=== PATIENT | female | born 1995 | race Two or more races ===

== ENCOUNTER 2016-08-09 06:32 | Day surgery (SDC) | payer OTHER ==
[2016-08-02 17:38] LABS: BASOPHILS 0.2 %; BASOPHILS ABSOLUTE 0.01 10/3/uL (0.0-0.16); EOSINOPHILS ABSOLUTE 0.04 10/3/uL (0.0-0.53); HEMATOCRIT 39.7 % (36.0-48.0); HEMOGLOBIN 13.3 g/dL (12.0-16.0); LYMPHOCYTES 32.2 %; MANUAL DIFF NO %; MEAN CORPUS HGB CONC 33.5 g/dL (32.0-36.0); MEAN CORPUSCULAR HEMOGLOB 29.3 pg (26.0-34.0); MEAN CORPUSCULAR VOLUME 87.4 fL (80-100); MEAN PLATELET VOLUME 10.6 fL (9.2-13.0); MONOCYTES 10.4 %; MONOCYTES ABSOLUTE 0.42 10/3/uL (0.21-1.20); NEUTROPHILS 56.2 %; NEUTROPHILS ABSOLUTE 2.27 10/3/uL (2.02-8.40); PLATELET COUNT 285 10/3/uL (150-400); RBC DISTRIBUTION WIDTH 13.3 % (12.0-16.0); RED CELL COUNT 4.54 10/6/uL (4.0-5.6)
[2016-08-02 17:46] LABS: BUN (BLOOD UREA NITROGEN) 11 MG/DL (5-25); CALCIUM, SERUM 8.9 MG/DL (8.5-10.4); CHLORIDE, SERUM 103 MMOL/L (96-112); CO2 (CARBON DIOXIDE) 27 MMOL/L (23-31); GFR AFRICAN AMERICAN 163 ML/MIN (>=60); GFR NON AFRICAN AMERICAN 140 ML/MIN (>=60); GLUCOSE, SERUM 86 MG/DL (60-99); SODIUM, SERUM 141 MMOL/L (135-145)
[2016-08-02 17:47] LABS: POTASSIUM, SERUM 4.6 MMOL/L (3.5-5.2)
--- NOTE | ~2016-08-09 | OP ---
Record Of Operation [facility] [address] [place]. [address] NAME: GABRIELE LEBLANC : 89 STATUS : [facility] UNIT#: [id number] AGE: 20 ADM/REG DATE : 08/09/16 MR#: [id number] REPORT SERV DATE: 08/10/16 DICTATED BY: ARIS ERIC DATE: 08/10/16 REPORT STATUS : Draft TRANSCRIBED BY: MODFederico DATE: 08/10/16 DATE OF PROCEDURE: 08/09/2016 PREOPERATIVE DIAGNOSIS: Hyperfunctional autonomous functioning right thyroid lobe nodule greater than 5 cm in size. POSTOPERATIVE DIAGNOSIS: Hyperfunctional autonomous functioning right thyroid lobe nodule greater than 5 cm in size. OPERATIVE PROCEDURE PERFORMED: Right thyroid lobectomy and isthmusectomy. INDICATIONS AND SIGNIFICANT HISTORY: The patient is a 20-year-old female with a significant history of hyperthyroidism identified on radioactive iodine uptake scan as having hyperfunctional right thyroid lobe nodule. Thyroid nodule was approximately 5.6 cm in size and given the size, as well as isolated nature of her thyroid problem, right thyroid lobectomy was recommended. OPERATIVE PROCEDURE AND FINDINGS: After informed consent was obtained, the patient was brought to the operating room and placed on the operating table in the supine position, at which point, general endotracheal anesthesia was induced by Anesthesia Service utilizing a NIM nerve monitoring tube. NIM nerve monitor was set up to monitor the laryngeal musculature throughout the course of the case. At this point, a natural skin crease slightly greater than two fingerbreadths above the sternal notch, skin incision was made and subplatysmal flaps were elevated. Strap muscles were divided in the midline and retracted laterally. This exposed the thyroid isthmus. The thyroid isthmus was then divided adjacent to the left thyroid lobe and superior pole vessels were isolated using right angle clamp and divided with a Harmonic scalpel along the right superior pole of the thyroid lobe. The left inferior pole vessels were divided as well. The middle thyroid veins were divided with bipolar cautery and the right thyroid lobe was then delivered out on to the anterior neck and using a combination of cautious sharp and blunt dissection, the soft tissue around the right thyroid lobe was dissected free preserving recurrent laryngeal nerve and any visible parathyroid tissue. The patient's lesion was removed. Specimen was sent to pathology for frozen section and returned as benign follicular lesion. Wound was inspected after identifying no additional bleeding. The patient's wound was closed in multiple layers consisting of deep Vicryl suture followed by closure of the skin with Prolene. Steri-Strips were applied. She was turned back toward anesthesia, aroused from anesthesia, and taken to the postanesthesia care unit in satisfactory condition. COMPLICATIONS: None. BLOOD LOSS: Less than 5 mL. IV FLUIDS: Per anesthesia. Record Of Operation [address] [address] NAME: GABRIELE LEBLANC : [birth year] STATUS : [facility] PAT#: [id number] AGE: 20 ADM/REG DATE : 08/09/16 MR#: [id number] REPORT SERV DATE: 08/10/16 DICTATED BY: ARIS ERIC DATE: 08/10/16 REPORT STATUS : Draft TRANSCRIBED BY: MARLENE DATE: 08/10/16 HERBERT/MARLENE Aris Eric M.D. / [id number] CC: Sarah Iqbal LUIS A.
[~2016-08-09 06:32] MED LIST: TAPAZOLE5 MG PO
== END 2016-08-09 13:50 | disposition home or self-care (01) ==
LOC: SDC 06:32
PROVIDERS: Otolaryngology
PROC: 0GTH0ZZ Resection of Right Thyroid Gland Lobe, Open Approach (ICD-10-PCS; principal; 2016-08-09 07:45)
DX: D34 Benign neoplasm of thyroid gland (principal); Z98.890 Other specified postprocedural states; Z83.6 Family history of other diseases of the respiratory system
CPT/HCPCS: 36415; 80048; 84703; 85025; 88307; 88331; A9270-GY; C1781; J0690; J2250; J2370; J2405; J2710; J3010